=== PATIENT | male | born 1940 | race Caucasian/White ===

== ENCOUNTER 2016-09-11 09:03 | Outpatient (RCR) | payer MEDICARE, OTHER ==
[2016-07-10 12:52] LABS: BASOPHILS % (AUTO) 0 % (0-10); EOSINOPHILS # (AUTO) 0.2 10^3/uL (0.0-0.3); EOSINOPHILS % (AUTO) 3 % (0-10); LYMPHOCYTES # (AUTO) 0.9 X 10^3 (1.0-4.0); LYMPHOCYTES % (AUTO) 15 % (12-44); MEAN CORPUSCULAR HEMOGLOBIN 33 PG (25-34); MEAN CORPUSCULAR HGB CONC 34 G/DL (32-36); MEAN CORPUSCULAR VOLUME 96 FL (80-99); MEAN PLATELET VOLUME 8.7 FL (7.4-10.4); MONOCYTES # (AUTO) 0.6 X 10^3 (0.0-1.0); MONOCYTES % (AUTO) 11 % (0-12); NEUTROPHILS # (AUTO) 4.2 X 10^3 (1.8-7.8); NEUTROPHILS % (AUTO) 71 % (42-75); PLATELET COUNT 212 10^3/uL (130-400); RED BLOOD COUNT 4.48 10^6/uL (4.35-5.85); RED CELL DISTRIBUTION WIDTH 12.6 % (10.0-14.5); WHITE BLOOD COUNT 5.9 10^3/uL (4.3-11.0)
[2016-07-10 13:20] LABS: ALANINE AMINOTRANSFERASE 14 U/L (0-55); ALBUMIN 3.8 G/DL (3.2-4.5); ANION GAP 10 MMOL/L (5-14); ASPARTATE AMINO TRANSFERASE 22 U/L (5-34); BILIRUBIN,TOTAL 0.7 MG/DL (0.1-1.0); BLOOD UREA NITROGEN 16 MG/DL (7-18); BUN/CREATININE RATIO 21; CALCIUM 9.1 MG/DL (8.5-10.1); CARBON DIOXIDE 25 MMOL/L (21-32); CHLORIDE 104 MMOL/L (98-107); CREATININE SERUM 0.77 MG/DL (0.60-1.30); GFR ESTIMATED > 60; GLUCOSE 106 MG/DL (70-105); LACTATE DEHYDROGENASE 184 U/L (125-220); POTASSIUM 3.7 MMOL/L (3.6-5.0); SODIUM 139 MMOL/L (135-145); TOTAL PROTEIN 5.9 G/DL (6.4-8.2)
[2016-07-11 03:00] LABS: IMMUNOGLOBULIN IGA 5 mg/dL (71-263); IMMUNOGLOBULIN IGG 247 mg/dL (672-1680)
[2016-07-11 07:05] LABS: IMMUNOGLOBULIN IGM 271 mg/dL (47-209)
[~2016-09-11] VITALS: Ht 177.8 cm; Wt 123.4 kg
[~2016-09-11 09:03] MED LIST: ACETAMINOPHEN 500 MG TAB (TYLENOL) CANCER CTR ONE; ACETAMINOPHEN 500 MG TAB (TYLENOL) CANCER CTR PO PRN; ACETAMINOPHEN 500 MG TAB (TYLENOL) PO PRN; ACYC400T21 PO; ALLO300T2 PO; ALLP300T PO; ASCO-262 PO; ASPI-875 PO; ASPI-983 PO; ATEN-147 PO; FLAX100031 PO; FLC1T PO; HEParin (CENTRAL IV FLUSH) 500 UNIT/5 ML SYR INJ PRN; HYDR-3583 PO; MAGN400T29 PO; NF-ESOM40C PO; NS (IVPB) 250 ML IV SCH; NS (IVPB) CANCER CENTER 250 ML IV SCH; NS IV SCH; POLY17PO23 GT; RITUXIMAB FOR IV SCH; RITUXIMAB IV SCH; ROSU20TA14 PO; TRAM50TA2 PO; TRIA1TAB3 PO; VITA400T9 PO; diphenhydrAMINE 25 MG TAB (BENADRYL) CANCER CENTER PO ONE; diphenhydrAMINE 25 MG TAB (BENADRYL) CANCER CENTER PO SCH; diphenhydrAMINE 25 MG TAB (BENADRYL) PO SCH
== END 2016-10-08 | disposition home or self-care (01) ==
LOC: ONC 09:03
PROVIDERS: ATTEND Internal Medicine Hematology & Oncology
DX: Z51.11 Encounter for antineoplastic chemotherapy (principal); C88.0 Waldenstrom macroglobulinemia; D61.818 Other pancytopenia; I10 Essential (primary) hypertension; Z92.21 Personal history of antineoplastic chemotherapy; Z79.899 Other long term (current) drug therapy
CPT/HCPCS: 36591; 80053; 82784; 83615; 85025; 96413; 96523; 99213

== ENCOUNTER 2017-01-15 08:41 | Outpatient (RCR) | payer MEDICARE, OTHER ==
[~2017-01-15] VITALS: Ht 177.8 cm; Wt 124.7 kg
[~2017-01-15 08:41] MED LIST changes: -ACETAMINOPHEN 500 MG TAB (TYLENOL) CANCER CTR ONE; -ACETAMINOPHEN 500 MG TAB (TYLENOL) PO PRN; -HEParin (CENTRAL IV FLUSH) 500 UNIT/5 ML SYR INJ PRN; -NS (IVPB) 250 ML IV SCH; -diphenhydrAMINE 25 MG TAB (BENADRYL) CANCER CENTER PO ONE; -diphenhydrAMINE 25 MG TAB (BENADRYL) PO SCH
[2017-01-15 09:07] LABS: BASOPHILS % (AUTO) 0 % (0-10); EOSINOPHILS # (AUTO) 0.1 10^3/uL (0.0-0.3); EOSINOPHILS % (AUTO) 2 % (0-10); LYMPHOCYTES # (AUTO) 0.8 X 10^3 (1.0-4.0); LYMPHOCYTES % (AUTO) 13 % (12-44); MEAN CORPUSCULAR HEMOGLOBIN 32 PG (25-34); MEAN CORPUSCULAR HGB CONC 33 G/DL (32-36); MEAN CORPUSCULAR VOLUME 96 FL (80-99); MEAN PLATELET VOLUME 9.6 FL (7.4-10.4); MONOCYTES # (AUTO) 0.6 X 10^3 (0.0-1.0); MONOCYTES % (AUTO) 10 % (0-12); NEUTROPHILS # (AUTO) 4.5 X 10^3 (1.8-7.8); NEUTROPHILS % (AUTO) 74 % (42-75); PLATELET COUNT 224 10^3/uL (130-400); RED BLOOD COUNT 4.71 10^6/uL (4.35-5.85); RED CELL DISTRIBUTION WIDTH 13.1 % (10.0-14.5)
[2017-01-15 09:31] LABS: ALANINE AMINOTRANSFERASE 10 U/L (0-55); ALBUMIN 3.8 G/DL (3.2-4.5); ANION GAP 10 MMOL/L (5-14); ASPARTATE AMINO TRANSFERASE 28 U/L (5-34); BLOOD UREA NITROGEN 15 MG/DL (7-18); BUN/CREATININE RATIO 16; CALCIUM 9.9 MG/DL (8.5-10.1); CARBON DIOXIDE 27 MMOL/L (21-32); CHLORIDE 105 MMOL/L (98-107); CREATININE SERUM 0.91 MG/DL (0.60-1.30); GFR ESTIMATED > 60; GLUCOSE 119 MG/DL (70-105); LACTATE DEHYDROGENASE 200 U/L (125-220); POTASSIUM 3.6 MMOL/L (3.6-5.0); SODIUM 142 MMOL/L (135-145); TOTAL PROTEIN 5.6 G/DL (6.4-8.2)
[2017-01-16 06:08] LABS: IMMUNOGLOBULIN IGA <2.0 (71-263); IMMUNOGLOBULIN IGG 217 mg/dL (672-1680)
[2017-01-16 08:14] LABS: IMMUNOGLOBULIN IGM 222 mg/dL (47-209)
== END 2017-01-22 | disposition home or self-care (01) ==
LOC: ONC 08:41
PROVIDERS: ATTEND Internal Medicine Hematology & Oncology
DX: Z51.11 Encounter for antineoplastic chemotherapy (principal); C88.0 Waldenstrom macroglobulinemia; D61.818 Other pancytopenia; I10 Essential (primary) hypertension; Z92.21 Personal history of antineoplastic chemotherapy; Z79.899 Other long term (current) drug therapy; Z45.2 Encounter for adjustment and management of vascular access device
CPT/HCPCS: 36591; 80053; 82784; 83615; 85025; 96413; 96523; 99213

== ENCOUNTER 2017-03-19 09:04 | Outpatient (RCR) | payer MEDICARE, OTHER | END 2017-04-23 | disposition home or self-care (01) | LOC: ONC 09:04 | PROVIDERS: ATTEND Internal Medicine Hematology & Oncology | DX: Z51.11 Encounter for antineoplastic chemotherapy (principal); C88.0 Waldenstrom macroglobulinemia; D61.818 Other pancytopenia; I10 Essential (primary) hypertension; Z92.21 Personal history of antineoplastic chemotherapy; Z79.899 Other long term (current) drug therapy; Z45.2 Encounter for adjustment and management of vascular access device | CPT/HCPCS: 96413; 96523 ==

== ENCOUNTER 2017-06-11 13:37 | Outpatient (RCR) | payer MEDICARE, OTHER ==
[~2017-06-11 13:37] MED LIST changes: -ACETAMINOPHEN 500 MG TAB (TYLENOL) CANCER CTR PO PRN; -NS (IVPB) CANCER CENTER 250 ML IV SCH; -NS IV SCH; -RITUXIMAB FOR IV SCH; -RITUXIMAB IV SCH; -diphenhydrAMINE 25 MG TAB (BENADRYL) CANCER CENTER PO SCH
== END 2017-06-20 | disposition home or self-care (01) ==
LOC: ONC 13:37
PROVIDERS: ATTEND Internal Medicine Hematology & Oncology
DX: C88.0 Waldenstrom macroglobulinemia (principal); D61.818 Other pancytopenia; I10 Essential (primary) hypertension; Z92.21 Personal history of antineoplastic chemotherapy; Z79.899 Other long term (current) drug therapy; Z45.2 Encounter for adjustment and management of vascular access device
CPT/HCPCS: 96523

== ENCOUNTER 2017-09-24 12:31 | Outpatient (RCR) | payer MEDICARE, OTHER ==
[2017-07-23 14:14] LABS: BASOPHILS % (AUTO) 0 % (0-10); EOSINOPHILS # (AUTO) 0.1 10^3/uL (0.0-0.3); EOSINOPHILS % (AUTO) 2 % (0-10); HEMATOCRIT 47 % (40-54); HEMOGLOBIN 16.3 G/DL (13.3-17.7); LYMPHOCYTES % (AUTO) 15 % (12-44); MEAN CORPUSCULAR HEMOGLOBIN 33 PG (25-34); MEAN CORPUSCULAR HGB CONC 35 G/DL (32-36); MEAN CORPUSCULAR VOLUME 97 FL (80-99); MEAN PLATELET VOLUME 9.3 FL (7.4-10.4); MONOCYTES # (AUTO) 0.9 X 10^3 (0.0-1.0); MONOCYTES % (AUTO) 13 % (0-12); NEUTROPHILS # (AUTO) 5.1 X 10^3 (1.8-7.8); NEUTROPHILS % (AUTO) 71 % (42-75); PLATELET COUNT 226 10^3/uL (130-400); RED CELL DISTRIBUTION WIDTH 12.8 % (10.0-14.5); WHITE BLOOD COUNT 7.1 10^3/uL (4.3-11.0)
[2017-07-23 14:31] LABS: ALANINE AMINOTRANSFERASE 12 U/L (0-55); ALKALINE PHOSPHATASE 61 U/L (40-136); BILIRUBIN,TOTAL 1.1 MG/DL (0.1-1.0); BUN/CREATININE RATIO 19; CARBON DIOXIDE 27 MMOL/L (21-32); CHLORIDE 102 MMOL/L (98-107); GFR ESTIMATED > 60; GLUCOSE 120 MG/DL (70-105); POTASSIUM 4.1 MMOL/L (3.6-5.0); SODIUM 140 MMOL/L (135-145); TOTAL PROTEIN 6.5 GM/DL (6.4-8.2)
== END 2017-10-21 | disposition home or self-care (01) ==
LOC: ONC 12:31
PROVIDERS: ATTEND Internal Medicine Hematology & Oncology
DX: C88.0 Waldenstrom macroglobulinemia (principal); D61.818 Other pancytopenia; I10 Essential (primary) hypertension; Z92.21 Personal history of antineoplastic chemotherapy; Z79.899 Other long term (current) drug therapy; Z45.2 Encounter for adjustment and management of vascular access device
CPT/HCPCS: 36591; 80053; 82784; 83615; 85025; 96523; 99213

== ENCOUNTER 2017-11-03 09:35 | Outpatient (RCR) | payer MEDICARE, OTHER ==
[2017-11-03 10:09] LABS: BASOPHILS # (AUTO) 0.1 10^3/uL (0.0-0.1); BASOPHILS % (AUTO) 2 % (0-10); EOSINOPHILS # (AUTO) 0.1 10^3/uL (0.0-0.3); EOSINOPHILS % (AUTO) 3 % (0-10); HEMATOCRIT 44 % (40-54); LYMPHOCYTES % (AUTO) 30 % (12-44); MEAN CORPUSCULAR HEMOGLOBIN 33 PG (25-34); MEAN CORPUSCULAR HGB CONC 34 G/DL (32-36); MEAN CORPUSCULAR VOLUME 96 FL (80-99); MEAN PLATELET VOLUME 9.1 FL (7.4-10.4); MONOCYTES % (AUTO) 31 % (0-12); NEUTROPHILS # (AUTO) 1.1 X 10^3 (1.8-7.8); NEUTROPHILS % (AUTO) 34 % (42-75); PLATELET COUNT 265 10^3/uL (130-400); RED BLOOD COUNT 4.56 10^6/uL (4.35-5.85); RED CELL DISTRIBUTION WIDTH 12.3 % (10.0-14.5); WHITE BLOOD COUNT 3.3 10^3/uL (4.3-11.0)
[2017-11-03 10:35] LABS: BUN/CREATININE RATIO 19; CARBON DIOXIDE 26 MMOL/L (21-32); CHLORIDE 105 MMOL/L (98-107); POTASSIUM 4.3 MMOL/L (3.6-5.0); SODIUM 141 MMOL/L (135-145)
[2017-11-03 10:36] LABS: ALANINE AMINOTRANSFERASE 12 U/L (0-55); ALBUMIN 3.5 GM/DL (3.2-4.5); ALKALINE PHOSPHATASE 51 U/L (40-136); BILIRUBIN,TOTAL 0.8 MG/DL (0.1-1.0); CALCIUM 9.5 MG/DL (8.5-10.1); GFR ESTIMATED > 60; GLUCOSE 108 MG/DL (70-105); TOTAL PROTEIN 6.1 GM/DL (6.4-8.2)
== END 2017-11-10 12:38 | disposition home or self-care (01) ==
LOC: ONC 09:35
PROVIDERS: ATTEND Internal Medicine Hematology & Oncology
DX: C88.0 Waldenstrom macroglobulinemia (principal); D61.818 Other pancytopenia; I10 Essential (primary) hypertension; Z92.21 Personal history of antineoplastic chemotherapy; Z79.899 Other long term (current) drug therapy; Z45.2 Encounter for adjustment and management of vascular access device
CPT/HCPCS: 36415; 36591; 80053; 82784; 83615; 85025; 96523

== ENCOUNTER 2018-01-28 09:54 | Outpatient (RCR) | payer MEDICARE, OTHER ==
[2017-11-11 11:12] LABS: BASOPHILS % (AUTO) 1 % (0-10); EOSINOPHILS # (AUTO) 0.1 10^3/uL (0.0-0.3); EOSINOPHILS % (AUTO) 2 % (0-10); HEMATOCRIT 44 % (40-54); HEMOGLOBIN 15.2 G/DL (13.3-17.7); LYMPHOCYTES # (AUTO) 1.1 X 10^3 (1.0-4.0); LYMPHOCYTES % (AUTO) 17 % (12-44); MEAN CORPUSCULAR HEMOGLOBIN 33 PG (25-34); MEAN CORPUSCULAR HGB CONC 35 G/DL (32-36); MEAN CORPUSCULAR VOLUME 96 FL (80-99); MEAN PLATELET VOLUME 8.7 FL (7.4-10.4); MONOCYTES # (AUTO) 0.7 X 10^3 (0.0-1.0); MONOCYTES % (AUTO) 10 % (0-12); NEUTROPHILS # (AUTO) 4.8 X 10^3 (1.8-7.8); NEUTROPHILS % (AUTO) 71 % (42-75); PLATELET COUNT 314 10^3/uL (130-400); RED BLOOD COUNT 4.58 10^6/uL (4.35-5.85); RED CELL DISTRIBUTION WIDTH 12.3 % (10.0-14.5); WHITE BLOOD COUNT 6.8 10^3/uL (4.3-11.0)
== END 2018-02-09 | disposition home or self-care (01) ==
LOC: ONC 09:54
PROVIDERS: ATTEND Internal Medicine Hematology & Oncology
DX: C88.0 Waldenstrom macroglobulinemia (principal); D61.818 Other pancytopenia; I10 Essential (primary) hypertension; Z92.21 Personal history of antineoplastic chemotherapy; Z79.899 Other long term (current) drug therapy; Z45.2 Encounter for adjustment and management of vascular access device
CPT/HCPCS: 36415; 85025; 96523; 99213

== ENCOUNTER 2018-06-03 09:21 | Outpatient (RCR) | payer MEDICARE, OTHER ==
[2018-04-22 09:51] LABS: BASOPHILS % (AUTO) 0 % (0-10); EOSINOPHILS # (AUTO) 0.2 10^3/uL (0.0-0.3); EOSINOPHILS % (AUTO) 3 % (0-10); HEMATOCRIT 46 % (40-54); HEMOGLOBIN 15.6 G/DL (13.3-17.7); LYMPHOCYTES # (AUTO) 1.1 X 10^3 (1.0-4.0); LYMPHOCYTES % (AUTO) 17 % (12-44); MEAN CORPUSCULAR HEMOGLOBIN 33 PG (25-34); MEAN CORPUSCULAR HGB CONC 34 G/DL (32-36); MEAN CORPUSCULAR VOLUME 96 FL (80-99); MEAN PLATELET VOLUME 9.5 FL (7.4-10.4); MONOCYTES # (AUTO) 0.8 X 10^3 (0.0-1.0); MONOCYTES % (AUTO) 12 % (0-12); NEUTROPHILS # (AUTO) 4.6 X 10^3 (1.8-7.8); NEUTROPHILS % (AUTO) 69 % (42-75); PLATELET COUNT 199 10^3/uL (130-400); RED BLOOD COUNT 4.76 10^6/uL (4.35-5.85); RED CELL DISTRIBUTION WIDTH 12.8 % (10.0-14.5); WHITE BLOOD COUNT 6.7 10^3/uL (4.3-11.0)
[2018-04-22 10:11] LABS: ALANINE AMINOTRANSFERASE 10 U/L (0-55); ALKALINE PHOSPHATASE 61 U/L (40-136); BILIRUBIN,TOTAL 1.4 MG/DL (0.1-1.0); BUN/CREATININE RATIO 19; CALCIUM 9.9 MG/DL (8.5-10.1); CARBON DIOXIDE 27 MMOL/L (21-32); CHLORIDE 105 MMOL/L (98-107); GFR ESTIMATED > 60; GLUCOSE 104 MG/DL (70-105); POTASSIUM 4.2 MMOL/L (3.6-5.0); SODIUM 141 MMOL/L (135-145); TOTAL PROTEIN 6.1 GM/DL (6.4-8.2)
== END 2018-06-09 | disposition home or self-care (01) ==
LOC: ONC 09:21
PROVIDERS: ATTEND Internal Medicine Hematology & Oncology
DX: C88.0 Waldenstrom macroglobulinemia (principal); D61.818 Other pancytopenia; I10 Essential (primary) hypertension; Z92.21 Personal history of antineoplastic chemotherapy; Z79.899 Other long term (current) drug therapy; Z45.2 Encounter for adjustment and management of vascular access device
CPT/HCPCS: 36591; 80053; 82784; 83615; 85025; 96523

== ENCOUNTER 2018-07-15 09:36 | Outpatient (RCR) | payer MEDICARE, OTHER | END 2018-08-26 09:26 | disposition home or self-care (01) | LOC: ONC 09:36 | PROVIDERS: ATTEND Internal Medicine Hematology & Oncology | DX: C88.0 Waldenstrom macroglobulinemia (principal); D61.818 Other pancytopenia; I10 Essential (primary) hypertension; Z92.21 Personal history of antineoplastic chemotherapy; Z79.899 Other long term (current) drug therapy; Z45.2 Encounter for adjustment and management of vascular access device | CPT/HCPCS: 96523 ==

== ENCOUNTER 2018-11-18 09:32 | Outpatient (RCR) | payer MEDICARE, OTHER ==
[2018-11-18 09:47] LABS: BASOPHILS % (AUTO) 0 % (0-10); EOSINOPHILS % (AUTO) 1 % (0-10); HEMATOCRIT 46 % (40-54); HEMOGLOBIN 15.5 G/DL (13.3-17.7); LYMPHOCYTES % (AUTO) 14 % (12-44); MEAN CORPUSCULAR HEMOGLOBIN 33 PG (25-34); MEAN CORPUSCULAR HGB CONC 34 G/DL (32-36); MEAN CORPUSCULAR VOLUME 98 FL (80-99); MEAN PLATELET VOLUME 9.4 FL (7.4-10.4); MONOCYTES # (AUTO) 0.8 X 10^3 (0.0-1.0); MONOCYTES % (AUTO) 12 % (0-12); NEUTROPHILS # (AUTO) 4.8 X 10^3 (1.8-7.8); NEUTROPHILS % (AUTO) 72 % (42-75); PLATELET COUNT 194 10^3/uL (130-400); RED CELL DISTRIBUTION WIDTH 13.3 % (10.0-14.5); WHITE BLOOD COUNT 6.7 10^3/uL (4.3-11.0)
[2018-11-18 09:48] LABS: EOSINOPHILS # (AUTO) 0.1 10^3/uL (0.0-0.3)
[2018-11-18 10:06] LABS: ALANINE AMINOTRANSFERASE 12 U/L (0-55); ALBUMIN 3.9 GM/DL (3.2-4.5); ALKALINE PHOSPHATASE 68 U/L (40-136); BUN/CREATININE RATIO 20; CALCIUM 9.5 MG/DL (8.5-10.1); CARBON DIOXIDE 26 MMOL/L (21-32); CHLORIDE 105 MMOL/L (98-107); CREATININE SERUM 0.84 MG/DL (0.60-1.30); GFR ESTIMATED > 60; GLUCOSE 102 MG/DL (70-105); POTASSIUM 4.4 MMOL/L (3.6-5.0); SODIUM 140 MMOL/L (135-145)
== END 2018-11-24 | disposition home or self-care (01) ==
LOC: ONC 09:32
PROVIDERS: ATTEND Internal Medicine Hematology & Oncology
DX: C88.0 Waldenstrom macroglobulinemia (principal); D61.818 Other pancytopenia; I10 Essential (primary) hypertension; Z92.21 Personal history of antineoplastic chemotherapy; Z79.899 Other long term (current) drug therapy; Z45.2 Encounter for adjustment and management of vascular access device
CPT/HCPCS: 36591; 80053; 82784; 83615; 85025; 96523

== ENCOUNTER 2019-05-05 08:33 | Outpatient (RCR) | payer MEDICARE, OTHER ==
[2019-05-05 09:07] LABS: BASOPHILS % (AUTO) 0 % (0-10); EOSINOPHILS # (AUTO) 0.3 10^3/uL (0.0-0.3); EOSINOPHILS % (AUTO) 4 % (0-10); HEMATOCRIT 47 % (40-54); HEMOGLOBIN 15.3 G/DL (13.3-17.7); LYMPHOCYTES % (AUTO) 15 % (12-44); MEAN CORPUSCULAR HEMOGLOBIN 32 PG (25-34); MEAN CORPUSCULAR HGB CONC 33 G/DL (32-36); MEAN CORPUSCULAR VOLUME 96 FL (80-99); MEAN PLATELET VOLUME 9.5 FL (7.4-10.4); MONOCYTES # (AUTO) 0.7 X 10^3 (0.0-1.0); MONOCYTES % (AUTO) 11 % (0-12); NEUTROPHILS # (AUTO) 4.3 X 10^3 (1.8-7.8); NEUTROPHILS % (AUTO) 69 % (42-75); PLATELET COUNT 213 10^3/uL (130-400); WHITE BLOOD COUNT 6.2 10^3/uL (4.3-11.0)
[2019-05-05 09:29] LABS: ALANINE AMINOTRANSFERASE 9 U/L (0-55); ALBUMIN 3.9 GM/DL (3.2-4.5); ALKALINE PHOSPHATASE 67 U/L (40-136); BILIRUBIN,TOTAL 0.9 MG/DL (0.1-1.0); BUN/CREATININE RATIO 20; CARBON DIOXIDE 25 MMOL/L (21-32); CHLORIDE 106 MMOL/L (98-107); GFR ESTIMATED > 60; GLUCOSE 92 MG/DL (70-105); POTASSIUM 4.4 MMOL/L (3.6-5.0); SODIUM 141 MMOL/L (135-145); TOTAL PROTEIN 5.9 GM/DL (6.4-8.2)
[2019-05-31] MEDS ORDERED: ATEN25TA PO (08:57)
[2019-05-31] MEDS ORDERED: PRAV10TA PO (08:57)
[2019-05-31] MEDS ORDERED: ASCO500C17 PO (08:57)
== END 2019-06-29 | disposition home or self-care (01) ==
LOC: ONC 08:33
PROVIDERS: ATTEND Internal Medicine Hematology & Oncology
DX: C88.0 Waldenstrom macroglobulinemia (principal); D61.818 Other pancytopenia; I10 Essential (primary) hypertension; Z92.21 Personal history of antineoplastic chemotherapy; Z79.899 Other long term (current) drug therapy; Z45.2 Encounter for adjustment and management of vascular access device
CPT/HCPCS: 36591; 80053; 82784; 83615; 85025; 96523

== ENCOUNTER 2019-05-31 08:30 | Outpatient (CLI) | payer MEDICARE, OTHER ==
[~2019-05-31] VITALS: Ht 182.9 cm; Wt 122.5 kg
[2019-05-31] MEDS ORDERED: PRAV10TA PO (08:57)
[2019-05-31] MEDS ORDERED: ATEN25TA PO (08:57)
[2019-05-31] MEDS ORDERED: ASCO500C17 PO (08:57)
== END 2019-05-31 10:27 | disposition home or self-care (01) ==
LOC: PREOP 08:30
PROVIDERS: ATTEND Surgery
DX: Z01.818 Encounter for other preprocedural examination (principal)

== ENCOUNTER 2019-06-02 06:45 | Day surgery (SDC) | payer MEDICARE, OTHER ==
[~2019-06-02] VITALS: Ht 182.9 cm; Wt 122.5 kg
[2019-06-02] VITALS (7 sets, daily range): BP systolic 128–168; BP diastolic 72–92
[~2019-06-02 06:45] MED LIST changes: +ASCO500C17 PO; +ATEN25TA PO; +PRAV10TA PO
[2019-06-02] MEDS ORDERED: LACTATED RINGERS 1,000 ML IV PRN (07:27)
[2019-06-02] MEDS ORDERED: CLINDAMYCIN 600 MG/50 ML IVPB 50 ML IV ONE (07:30)
--- NOTE | 2019-06-02 07:54 | Progress Note-Pre Operative ---
Pre-Operative Progress Note H&P Reviewed The H&P was reviewed, patient examined and no changes noted. Date Seen by Provider: Jun 02, 2019 Time Seen by Provider: 07:53 Date H&P Reviewed: Jun 02, 2019 Time H&P Reviewed: 07:53 Pre-Operative Diagnosis: waldenstrom's macroglobulinemia IVAN SAHU DO Jun 02, 2019 07:54
[2019-06-02] MEDS ORDERED: proPOfol 200 MG/20 ML (DIPRIVAN) VIAL IV ONE (08:00)
[2019-06-02] MEDS ORDERED: LIDOCAINE PF 2% 5 ML (XYLOCAINE) VIAL ONE (08:00)
[2019-06-02] MEDS ORDERED: MIDAZOLAM 2 MG/2 ML (VERSED) VIAL ONE (08:00)
[2019-06-02] MEDS ORDERED: BUP/EPI 0.25% 1:200,000 (MARCAINE) 30 ML VIAL INJ ONE (09:00)
[2019-06-02] MEDS ORDERED: morphine INJ 10 MG/ML 1ML (SYR OR VIAL) IVP ONE (09:15)
[2019-06-02] MEDS ORDERED: ONDANSETRON 4 MG/2 ML (SDV) Z0FRAN IVP PRN (09:15)
[2019-06-02] MEDS ORDERED: BUP/EPI 0.25% 1:200,000 (MARCAINE) 10 ML VIAL IJ ONE (09:30)
--- NOTE | 2019-06-02 09:33 | Discharge Inst-Simple/Standard ---
Discharge Inst-Standard Patient Instructions/Follow Up Plan of Care/Instructions/FU: 2 weeks Bernardo Activity as Tolerated: Yes Discharge Diet: Regular Diet Other Inst to Patient Follow up Appt: Make appointment for 2 week. Instructions: No strenuous activity. May shower in 24 hours, no tub bath or soaking. Use incentive spirometer at home as directed. No Smoking Skin/Wound Care: You have special glue over incision it will fall off on its own. Symptoms to Report: Appetite Changes, Extremity Discoloration, Numbness/Tingling, Swelling Increased, Bleeding Excessive, Eyesight Changes, Pain Increased, Urine Color Change, Constipation(Persistent), Fever over 101 degree F, Pain/Pressure in chest, Urinating Difficulty, Cough Up/Vomit Blood, Heart Beat Irreg/Pounding, Pain/Pressure in jaw, Vaginal Bleeding Increase, Cramps in feet or legs, Lightheadedness, Pain/Pressure in shoulder, Diarrhea(Persistent), Memory Changes Suddenly, Questions/Concerns, Weight gain consecutive days, Dizziness/Fainting, Nausea/Vomiting, Shortness of Breath, Weight gain over 2 pounds If questions or concerns contact your physician Or seek help at emergency department. IVAN SAHU DO Jun 02, 2019 09:33
--- NOTE | 2019-06-02 09:34 | Progress Note-Post Operative ---
Post-Operative Progess Note Surgeon (s)/Front Desk Supervisor (s) Surgeon IVAN SAHU DO Front Desk Supervisor: na Pre-Operative Diagnosis waldenstrom's macroglobulinemia Post-Operative Diagnosis same Procedure & Operative Findings Date of Procedure 06/02/19 Procedure Performed/Findings port removal Anesthesia Type mac c local Estimated Blood Loss Estimated blood loss (mL): min Specimens/Packing Specimens Removed na IVAN SAHU DO Jun 02, 2019 09:34
--- NOTE | 2019-06-02 10:06 | Anesthesia-General Post-Op ---
MAC Patient Condition Mental Status/LOC: Same as Preop Cardiovascular: Satisfactory Nausea/Vomiting: Absent Respiratory: Satisfactory Pain: Controlled Complications: Absent Post Op Complications Complications None Follow Up Care/Instructions Patient Instructions None needed. Anesthesiology Discharge Order Discharge Order Patient is doing well, no complaints, stable vital signs, no apparent adverse anesthesia problems. No complications reported per nursing. TERRY MARTINEZ CRNA Jun 02, 2019 10:06
--- NOTE | 2019-06-03 00:30 | OPERATIVE REPORT ---
DATE OF SERVICE: 06/02/2019 PREOPERATIVE DIAGNOSIS: Waldenstrom's macroglobulinemia. POSTOPERATIVE DIAGNOSIS: Waldenstrom's macroglobulinemia. PROCEDURE: Port removal. SURGEON: Ivna Chang DO. ANESTHESIA: MAC with local. ESTIMATED BLOOD LOSS: Minimal. COMPLICATIONS: None. INDICATIONS: The patient is an 78-year-old male who has a port for Waldenstrom's macroglobulinemia, not undergoing treatment. His port was malfunctioning, so it has been asked that to be removed. He understands risks and benefits of procedure and wished to proceed with procedure. Consent was signed in the chart. DESCRIPTION OF PROCEDURE: The patient was taken to the operating suite, was prepped and draped in sterile fashion. Timeout was performed. Local anesthetic was infiltrated around the port. A 15-blade scalpel was used to make a skin incision over previous scar. The subcutaneous tissues were then dissected down through with cautery where the port was then encountered, grasped, elevated and the catheter were removed in its entirety. The wound was then irrigated and subcutaneous tissues were reapproximated using 3-0 Vicryl and the skin was then closed using Skin Affix. The patient tolerated procedure well without any complications and taken to recovery room in stable condition. Job ID: [id number] DocumentID: [id number] Dictated Date: 06/02/2019 14:37:16 Travel Freight And Passenger Agent Date: 06/03/2019 00:30:18 Dictated By: IVAN CHANG DO
== END 2019-06-02 10:10 | disposition home or self-care (01) ==
LOC: SDC 06:45
PROVIDERS: ATTEND Surgery
DX: T82.598A Other mechanical complication of other cardiac and vascular devices and implants, initial encounter (principal); C88.0 Waldenstrom macroglobulinemia; I10 Essential (primary) hypertension; E78.5 Hyperlipidemia, unspecified; K21.9 Gastro-esophageal reflux disease without esophagitis; E66.9 Obesity, unspecified; D61.818 Other pancytopenia; M48.00 Spinal stenosis, site unspecified; M19.90 Unspecified osteoarthritis, unspecified site; Z68.37 Body mass index [BMI] 37.0-37.9, adult; Z85.46 Personal history of malignant neoplasm of prostate; Z88.0 Allergy status to penicillin; Z88.8 Allergy status to other drugs, medicaments and biological substances; Z79.82 Long term (current) use of aspirin; Z79.899 Other long term (current) drug therapy; Z96.651 Presence of right artificial knee joint
CPT/HCPCS: 87081

== ENCOUNTER → 2019-11-07 | Outpatient (CLI) | payer MEDICARE, OTHER ==
[~2019-11-07] MED LIST changes: +TRM50T PO
[2019-11-07 09:16] LABS: BASOPHILS % (AUTO) 0 % (0-10); EOSINOPHILS # (AUTO) 0.1 10^3/uL (0.0-0.3); EOSINOPHILS % (AUTO) 1 % (0-10); HEMATOCRIT 47 % (40-54); HEMOGLOBIN 15.4 G/DL (13.3-17.7); LYMPHOCYTES # (AUTO) 1.1 X 10^3 (1.0-4.0); LYMPHOCYTES % (AUTO) 10 % (12-44); MEAN CORPUSCULAR HEMOGLOBIN 32 PG (25-34); MEAN CORPUSCULAR HGB CONC 33 G/DL (32-36); MEAN CORPUSCULAR VOLUME 97 FL (80-99); MEAN PLATELET VOLUME 9.7 FL (7.4-10.4); MONOCYTES # (AUTO) 1.2 X 10^3 (0.0-1.0); MONOCYTES % (AUTO) 11 % (0-12); NEUTROPHILS # (AUTO) 8.5 X 10^3 (1.8-7.8); NEUTROPHILS % (AUTO) 78 % (42-75); PLATELET COUNT 220 10^3/uL (130-400); RED CELL DISTRIBUTION WIDTH 13.5 % (10.0-14.5); WHITE BLOOD COUNT 10.9 10^3/uL (4.3-11.0)
[2019-11-07 09:34] LABS: ALANINE AMINOTRANSFERASE 10 U/L (0-55); ALBUMIN 4.1 GM/DL (3.2-4.5); ALKALINE PHOSPHATASE 76 U/L (40-136); BILIRUBIN,TOTAL 2.1 MG/DL (0.1-1.0); BUN/CREATININE RATIO 20; CALCIUM 9.5 MG/DL (8.5-10.1); CARBON DIOXIDE 30 MMOL/L (21-32); CHLORIDE 100 MMOL/L (98-107); GFR ESTIMATED > 60; GLUCOSE 76 MG/DL (70-105); POTASSIUM 3.5 MMOL/L (3.6-5.0); SODIUM 141 MMOL/L (135-145); TOTAL PROTEIN 6.7 GM/DL (6.4-8.2)
== END ==
LOC: EDSTATUS 06-30 12:21 → ONC 08:52
PROVIDERS: ATTEND Internal Medicine Hematology & Oncology
DX: C88.0 Waldenstrom macroglobulinemia (principal); D61.818 Other pancytopenia; I10 Essential (primary) hypertension; Z92.21 Personal history of antineoplastic chemotherapy; Z79.899 Other long term (current) drug therapy
CPT/HCPCS: 80053; 82784; 83615; 85025; 87804; 99213

== ENCOUNTER → 2020-04-23 | Outpatient (CLI) | payer MEDICARE, OTHER ==
[2020-04-23 09:42] LABS: BASOPHILS % (AUTO) 0 % (0-10); EOSINOPHILS # (AUTO) 0.2 10^3/uL (0.0-0.3); EOSINOPHILS % (AUTO) 2 % (0-10); HEMATOCRIT 48 % (40-54); HEMOGLOBIN 16.3 G/DL (13.3-17.7); LYMPHOCYTES # (AUTO) 1.2 X 10^3 (1.0-4.0); LYMPHOCYTES % (AUTO) 15 % (12-44); MEAN CORPUSCULAR HEMOGLOBIN 32 PG (25-34); MEAN CORPUSCULAR HGB CONC 34 G/DL (32-36); MEAN CORPUSCULAR VOLUME 95 FL (80-99); MEAN PLATELET VOLUME 9.4 FL (7.4-10.4); MONOCYTES # (AUTO) 0.8 X 10^3 (0.0-1.0); MONOCYTES % (AUTO) 9 % (0-12); NEUTROPHILS % (AUTO) 73 % (42-75); PLATELET COUNT 216 10^3/uL (130-400); WHITE BLOOD COUNT 8.2 10^3/uL (4.3-11.0)
[2020-04-23 10:02] LABS: ALANINE AMINOTRANSFERASE 10 U/L (0-55); ALBUMIN 4.1 GM/DL (3.2-4.5); ALKALINE PHOSPHATASE 76 U/L (40-136); BILIRUBIN,TOTAL 1.5 MG/DL (0.1-1.0); BUN/CREATININE RATIO 20; CALCIUM 9.3 MG/DL (8.5-10.1); CARBON DIOXIDE 21 MMOL/L (21-32); CHLORIDE 107 MMOL/L (98-107); CREATININE SERUM 0.88 MG/DL (0.60-1.30); GFR ESTIMATED > 60; GLUCOSE 84 MG/DL (70-105); SODIUM 140 MMOL/L (135-145)
== END ==
LOC: ONC 09:30
PROVIDERS: ATTEND Internal Medicine Hematology & Oncology
DX: C88.0 Waldenstrom macroglobulinemia (principal); E80.6 Other disorders of bilirubin metabolism; I25.2 Old myocardial infarction; Z92.21 Personal history of antineoplastic chemotherapy
CPT/HCPCS: 80053; 82784 ×3; 83615; 85025; G0463; 99213

== ENCOUNTER → 2020-10-22 | Outpatient (CLI) | payer MEDICARE, OTHER ==
[~2020-10-22] MED LIST changes: +ASPI-1238 PO; -ASPI-983 PO
[2020-10-22 10:56] LABS: BASOPHILS % (AUTO) 0 % (0-10); EOSINOPHILS # (AUTO) 0.1 10^3/uL (0.0-0.3); EOSINOPHILS % (AUTO) 1 % (0-10); HEMATOCRIT 46 % (40-54); HEMOGLOBIN 15.3 g/dL (13.3-17.7); LYMPHOCYTES # (AUTO) 1.1 10^3/uL (1.0-4.0); LYMPHOCYTES % (AUTO) 12 % (12-44); MEAN CORPUSCULAR HEMOGLOBIN 33 pg (25-34); MEAN CORPUSCULAR HGB CONC 33 g/dL (32-36); MEAN CORPUSCULAR VOLUME 98 fL (80-99); MEAN PLATELET VOLUME 9.2 fL (9.0-12.2); MONOCYTES # (AUTO) 0.6 10^3/uL (0.0-1.0); MONOCYTES % (AUTO) 7 % (0-12); NEUTROPHILS % (AUTO) 79 % (42-75); PLATELET COUNT 195 10^3/uL (130-400); WHITE BLOOD COUNT 8.9 10^3/uL (4.3-11.0)
[2020-10-22 11:17] LABS: ALANINE AMINOTRANSFERASE 10 U/L (0-55); ALBUMIN 3.7 GM/DL (3.2-4.5); ALKALINE PHOSPHATASE 84 U/L (40-136); BILIRUBIN,TOTAL 1.5 MG/DL (0.1-1.0); BUN/CREATININE RATIO 20; CALCIUM 9.2 MG/DL (8.5-10.1); CARBON DIOXIDE 24 MMOL/L (21-32); CHLORIDE 106 MMOL/L (98-107); CREATININE SERUM 0.95 MG/DL (0.60-1.30); GFR ESTIMATED > 60; GLUCOSE 96 MG/DL (70-105); POTASSIUM 4.1 MMOL/L (3.6-5.0); SODIUM 142 MMOL/L (135-145); TOTAL PROTEIN 5.7 GM/DL (6.4-8.2)
== END ==
LOC: ONC 10:31
PROVIDERS: ATTEND Internal Medicine Hematology & Oncology
DX: C88.0 Waldenstrom macroglobulinemia (principal); D61.818 Other pancytopenia; Z92.21 Personal history of antineoplastic chemotherapy; D80.1 Nonfamilial hypogammaglobulinemia; I25.2 Old myocardial infarction; E80.7 Disorder of bilirubin metabolism, unspecified; I10 Essential (primary) hypertension; Z20.822 Contact with and (suspected) exposure to COVID-19
CPT/HCPCS: 80053; 82784 ×3; 83615; 85025; 86769; G0463; 99213

== ENCOUNTER → 2021-04-29 | Outpatient (CLI) | payer MEDICARE, OTHER ==
[2021-04-29 11:11] LABS: BASOPHILS % (AUTO) 1 % (0-10); EOSINOPHILS # (AUTO) 0.2 10^3/uL (0.0-0.3); EOSINOPHILS % (AUTO) 2 % (0-10); HEMATOCRIT 49 % (40-54); HEMOGLOBIN 16.2 g/dL (13.3-17.7); LYMPHOCYTES # (AUTO) 1.2 10^3/uL (1.0-4.0); LYMPHOCYTES % (AUTO) 13 % (12-44); MEAN CORPUSCULAR HEMOGLOBIN 33 pg (25-34); MEAN CORPUSCULAR HGB CONC 33 g/dL (32-36); MEAN CORPUSCULAR VOLUME 99 fL (80-99); MEAN PLATELET VOLUME 8.9 fL (9.0-12.2); MONOCYTES # (AUTO) 0.7 10^3/uL (0.0-1.0); MONOCYTES % (AUTO) 8 % (0-12); NEUTROPHILS # (AUTO) 6.7 10^3/uL (1.8-7.8); NEUTROPHILS % (AUTO) 76 % (42-75); PLATELET COUNT 213 10^3/uL (130-400); WHITE BLOOD COUNT 8.7 10^3/uL (4.3-11.0)
[2021-04-29 11:39] LABS: BILIRUBIN,TOTAL 1.5 MG/DL (0.1-1.0); CALCIUM 9.4 MG/DL (8.5-10.1); CREATININE SERUM 0.81 MG/DL (0.60-1.30); POTASSIUM 3.5 MMOL/L (3.6-5.0); TOTAL PROTEIN 6.4 GM/DL (6.4-8.2)
== END ==
LOC: ONC 10:58
PROVIDERS: ATTEND Internal Medicine Hematology & Oncology
DX: C88.0 Waldenstrom macroglobulinemia (principal); D80.1 Nonfamilial hypogammaglobulinemia; I10 Essential (primary) hypertension; E66.9 Obesity, unspecified; Z92.21 Personal history of antineoplastic chemotherapy
CPT/HCPCS: 80053; 82784 ×3; 83615; 85025; G0463; 99213

== ENCOUNTER → 2021-10-21 | Outpatient (CLI) | payer MEDICARE, OTHER ==
[2021-10-21 14:04] LABS: BASOPHILS % (AUTO) 0 % (0-10); EOSINOPHILS # (AUTO) 0.1 10^3/uL (0.0-0.3); EOSINOPHILS % (AUTO) 2 % (0-10); HEMATOCRIT 48 % (40-54); HEMOGLOBIN 16.3 g/dL (13.3-17.7); LYMPHOCYTES # (AUTO) 1.1 10^3/uL (1.0-4.0); LYMPHOCYTES % (AUTO) 16 % (12-44); MEAN CORPUSCULAR HEMOGLOBIN 33 pg (25-34); MEAN CORPUSCULAR HGB CONC 34 g/dL (32-36); MEAN CORPUSCULAR VOLUME 98 fL (80-99); MONOCYTES # (AUTO) 0.5 10^3/uL (0.0-1.0); MONOCYTES % (AUTO) 8 % (0-12); NEUTROPHILS % (AUTO) 74 % (42-75); PLATELET COUNT 218 10^3/uL (130-400); WHITE BLOOD COUNT 6.7 10^3/uL (4.3-11.0)
[2021-10-21 14:21] LABS: ALBUMIN 3.8 GM/DL (3.2-4.5); BILIRUBIN,TOTAL 1.2 MG/DL (0.1-1.0); CREATININE SERUM 0.79 MG/DL (0.60-1.30); POTASSIUM 3.7 MMOL/L (3.6-5.0)
== END ==
LOC: ONC 13:21
PROVIDERS: ATTEND Internal Medicine
DX: C88.0 Waldenstrom macroglobulinemia (principal); D80.1 Nonfamilial hypogammaglobulinemia; I10 Essential (primary) hypertension; E66.01 Morbid (severe) obesity due to excess calories
CPT/HCPCS: 80053; 82784 ×3; 85025; G0463; 99213